=== PATIENT | female | born 1940 | race Caucasian/White ===

== ENCOUNTER → 2017-04-15 | Outpatient (CLI) | payer OTHER, MEDICAID ==
--- NOTE | 2017-04-15 14:06 | MRI ---
STUDY: MRI OF THE LUMBAR SPINE HISTORY: Low back pain for 4 weeks. Comparison: None. Technique: Multiplanar multi-sequence MRI of the lumbar spine was performed. Sagittal T1, sagittal T 2, and STIR images, axial T1, and axial T2 images were obtained. Findings: Sagittal images: For the sake of this dictation, the last rib-bearing vertebral body is designated T1 2. There are 4 lumbar type vertebral bodies designated L1-L4. There is a transitional vertebra design ated L5. There is incomplete segmentation of L5 and S1. Vertebral body heights are within normal limits. There is grade 1 anterolisthesis of L4 on L5. There is multilevel degenerative disc disease and degenerative endplate change. There is multilevel degene rative disc disease, most notable at L4/5 and L5/S1. Multiple Schmorl's nodes are identified. The conus medullaris is normal in appearance terminating at the level of L2. Axial images: T12 -- L1: There is a right paracentral and right foraminal disc bulge. This results in effacement of the right lateral recess and mild spinal stenosis. The neural foramina are adequate. L1 -- L2: There is a broad-based disc bulge, bilateral facet arthropathy and ligamentum flavum infold ing. There is mild central canal stenosis. There is mild bilateral neural foraminal stenosis. L2 -- L3: There is a shallow disc bulge, bilateral facet arthropathy and ligamentum flavum infolding. The central canal and neural foramina are adequate. L3 -- L4: There is a broad-based disc bulge, bilateral facet arthropathy and ligamentum flavum infold ing. The combination of these findings results in severe spinal stenosis. The neural foramina are kain quate. L4 -- L5: There is a broad-based disc bulge, bilateral facet arthropathy and ligamentum flavum infold ing. In combination with grade 1 anterolisthesis of L4 on L5, these findings results in moderate to s evere spinal stenosis. There is mild left neural foraminal stenosis. The right neural foramen is adeq uate. L5 -- S1: There is no significant disc bulge. The central canal and neural foramina are adequate. IMPRESSION: 1. Multilevel lumbar spondylosis, with grade 1 anterolisthesis of L4 on L5 and incomplete segmentatio n of the L5/S1 vertebrae. 2. Severe spinal stenosis at L3/4 3. Moderate severe spinal stenosis at L4/5. 4. Multilevel neural foraminal stenosis. Please see above for detail. Reported By:
== END | disposition home or self-care (01) | DRG 552 ==
LOC: RAD 10:05
PROVIDERS: ATTEND Specialist
DX: M53.9 Dorsopathy, unspecified (principal); M47.896 Other spondylosis, lumbar region; M48.061 Spinal stenosis, lumbar region without neurogenic claudication
CPT/HCPCS: 72148

== ENCOUNTER → 2017-05-03 | Day surgery (SDC) | payer OTHER, MEDICAID ==
[~2017-05-03] MED LIST: KENALOG INJ 40 MG IM ONE; MARCAINE 0.25% INJ ONE; XYLOCAINE 1 % (PLAIN) ONE
--- NOTE | 2017-05-03 12:27 | DR.UPDATE ---
H&P Update History and Physical Update: History and Physical reviewed and patient examined. Changes noted: NO Yes with the following:Agree with Dr Ryan H&P. will proceed with interlaminar ford L4-5 right
[2017-05-03 13:45] VITALS: BP 195/85
== END | disposition home or self-care (01) | DRG 552 ==
LOC: SURG1 11:21
PROVIDERS: ATTEND Specialist
PROC: 3E0R33Z Introduction of Anti-inflammatory into Spinal Canal, Percutaneous Approach (ICD-10-PCS; principal; 2017-05-03 12:30)
PROC: 3E0R3BZ Introduction of Anesthetic Agent into Spinal Canal, Percutaneous Approach (ICD-10-PCS; principal; 2017-05-03 12:30)
DX: M54.31 Sciatica, right side (principal)
CPT/HCPCS: 62323; 76000; A4222; S0020; J2001; J3301

== ENCOUNTER → 2017-06-16 | Day surgery (SDC) | payer OTHER, MEDICAID ==
--- NOTE | 2017-06-16 13:07 | DR.UPDATE ---
H&P Update History and Physical Update: History and Physical reviewed and patient examined. Changes noted: NO Yes with the following:Agree with Dr David's H&P. will proceed with L3-4 interlaminar ford right
[2017-06-16] MEDS: XYLOCAINE 1 % (PLAIN) ONE ×2 (13:17→13:25)
[2017-06-16] MEDS: MARCAINE 0.25% INJ ONE ×2 (13:22→13:30)
[2017-06-16] MEDS: KENALOG INJ 40 MG IM ONE ×2 (13:22→13:30)
[2017-06-16 14:00] VITALS: BP 179/77
== END | disposition home or self-care (01) ==
LOC: SURG1 12:02
PROVIDERS: ATTEND Orthopaedic Surgery
PROC: 3E0R3BZ Introduction of Anesthetic Agent into Spinal Canal, Percutaneous Approach (ICD-10-PCS; 2017-06-16)
PROC: 3E0R33Z Introduction of Anti-inflammatory into Spinal Canal, Percutaneous Approach (ICD-10-PCS; principal; 2017-06-16 12:30)
DX: M54.31 Sciatica, right side (principal)
CPT/HCPCS: 62323; A4222; S0020; J2001; J3301

== ENCOUNTER → 2017-06-30 | Day surgery (SDC) | payer OTHER, MEDICAID ==
[~2017-06-30] MED LIST changes: -XYLOCAINE 1 % (PLAIN) ONE
--- NOTE | 2017-06-30 13:11 | DR.UPDATE ---
H&P Update History and Physical Update: History and Physical reviewed and patient examined. Changes noted: NO Yes with the following:Agree wotj H&P from Dr David. will proceed with lumbar 3-4, or 4-5 ford right. pt states pain on right mostly
[2017-06-30] MEDS: XYLOCAINE 1 % (PLAIN) ONE ×2 (13:25→13:30)
[2017-06-30 14:03] VITALS: BP 142/69
== END | disposition home or self-care (01) | DRG 552 ==
LOC: SURG1 11:30
PROVIDERS: ATTEND Orthopaedic Surgery
PROC: 3E0R3BZ Introduction of Anesthetic Agent into Spinal Canal, Percutaneous Approach (ICD-10-PCS; 2017-06-30)
PROC: 3E0R33Z Introduction of Anti-inflammatory into Spinal Canal, Percutaneous Approach (ICD-10-PCS; principal; 2017-06-30 12:30)
DX: M51.36 Other intervertebral disc degeneration, lumbar region (principal)
CPT/HCPCS: 62323; 76000; A4222; S0020; J2001; J3301